=== PATIENT | male | born 1985 | race Caucasian/White ===

== ENCOUNTER → 2018-10-17 21:24 | Emergency (ER) | payer BC, OTHER ==
[~2018-10-17 21:24] MED LIST: NS 0.9% 1000 ML** 1,000 ML IV ONE
--- NOTE | 2018-10-17 21:36 | ED ---
Syncope/Near Syncope - HPI Summary HPI Summary: This patient is a 32 year old male brought in by EMS presenting to [facility] with a chief complaint of syncope 20 minutes ago. The patient lost consciousness for 7 minutes, per EMS. The patient states he experienced dizziness then passed out. 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 He states he is currently experiencing chest pain. The patient denies urination when he experienced the episode. - History Of Current Complaint Time Seen by Provider: 10/17/18 21:29 Hx Obtained From: Patient, EMS Onset/Duration: Lasting Minutes - Allergies/Home Medications Allergies/Adverse Reactions: Allergies Allergy/AdvReac Type Severity Reaction Status Date / Time No Known Allergies Allergy Verified 10/17/18 21:47 Home Medications: Home Medications NK [No Home Medications Reported] 10/17/18 [History Confirmed 10/17/18] PMH/Surg Hx/FS Hx/Imm Hx Endocrine/Hematology History: Denies: Hx Diabetes Cardiovascular History: Denies: Hx Hypertension, Hx Myocardial Infarction Infectious Disease History: No Infectious Disease History: Denies: Traveled Outside the [place] in Last 30 Days - Family History Known Family History: Positive: Cardiac Disease - Social History Alcohol Use: None Substance Use Type: Reports: Marijuana Hx Tobacco Use: No Smoking Status (MU): Never Smoked Tobacco Review of Systems Positive: Chest Pain Positive: incontinence Neurological: Other - Dizziness Positive: Syncope All Other Systems Reviewed And Are Negative: Yes Physical Exam - Summary Physical Exam Summary: VITAL SIGNS: Reviewed. GENERAL: Patient is a well-developed and nourished MALE who is lying comfortable in the stretcher. Patient is not in any acute respiratory distress. HEAD AND FACE: No signs of trauma. No ecchymosis, hematomas or skull depressions. No sinus tenderness. EYES: PERRLA, EOMI x 2, No injected conjunctiva, no nystagmus. EARS: Hearing grossly intact. Ear canals and tympanic membranes are within normal limits. MOUTH: Oropharynx within normal limits. NECK: Supple, trachea is midline, no adenopathy, no JVD, no carotid bruit, no c- spine tenderness, neck with full ROM CHEST: Symmetric, no tenderness at palpation LUNGS: Clear to auscultation bilaterally. No wheezing or crackles. CVS: Regular rate and rhythm, S1 and S2 present, no murmurs or gallops appreciated. ABDOMEN: Soft, non-tender. No signs of distention. No rebound no guarding, and no masses palpated. Bowel sounds are normal. EXTREMITIES: FROM in all major joints, no edema, no cyanosis or clubbing. NEURO: Alert and oriented x 3. No acute neurological deficits. Speech is normal and follows commands. SKIN: Dry and warm Triage Information Reviewed: Yes Vital Signs On Initial Exam: Initial Vitals Temp Pulse Resp BP Pulse Ox 99.4 F 83 16 122/77 98 10/17/18 21:25 10/17/18 21:25 10/17/18 21:25 10/17/18 21:25 10/17/18 21:25 Vital Signs Reviewed: Yes Diagnostics - Vital Signs Vital Signs Temp Pulse Resp BP Pulse Ox 10/17/18 21:25 99.4 F 83 16 122/77 98 - Laboratory Result Diagrams: 10/17/18 21:46 10/17/18 21:46 Lab Statement: Any lab studies that have been ordered have been reviewed, and results considered in the medical decision making process. - EKG 2126 Cardiac Rate: NL EKG Rhythm: Sinus Rhythm - [address] Segment: Normal Ectopy: None Summary of EKG Findings: Normal interval, normal axis, no ischemic changes. Course/Dx Course Of Treatment: This patient is a 32 year old male brought in by EMS presenting to [facility] with a chief complaint of syncope 20 minutes ago. EKG was unremarkable for cardiovascular problems. The patient will be discharged and instructed to restrain from extertional activity until cleared by a Acrobatic Dancer. This plan was discussed with the patient and he was agreeable with this plan. - Diagnoses Provider Diagnoses: Heat syncope Discharge - Sign-Out/Discharge Documenting (check all that apply): Patient Departure - Discharge Patient Received Moderate/Deep Sedation with Procedure: No - Discharge Plan Condition: Stable Disposition: HOME Patient Education Materials: Heat Exhaustion (ED), Syncope (ED) Referrals: [facility] [Provider Group] - 1 Day Additional Instructions: Follow up with Cardiology on Thursday. Refrain from physical activity until cleared by the Acrobatic Dancer. Return to ED with any new or worsening symptoms. - Attestation Statements Document Initiated by Scribe: Yes Documenting Scribe: Catracho El Provider For Whom Scribe is Documenting (Include Credential): MD Lida Hoe Attestation: Catracho Cisneros, scribed for Marcella Macias MD on 10/17/18 at 2301. Status of Scribe Document: Ready
[2018-10-17 21:54] LABS: ABS Basophils 0.1 10^3/ul (0-0.2); ABS Eosinophils 0.1 10^3/ul (0-0.6); ABS Lymphocytes 2.3 10^3/ul (1.0-4.8); ABS Monocytes 0.8 10^3/ul (0-0.8); ABS Neutrophils 8.3 10^3/ul (1.5-7.7); Eosinophil % 0.5 %; Hematocrit 45 % (42-52); Hemoglobin 14.8 g/dL (14.0-18.0); Lymphocyte % 20.1 %; Mean Corpuscular HGB Conc 33 g/dL (31-36); Mean Corpuscular Hemoglobin 27 pg (27-31); Mean Corpuscular Volume 81 fL (80-94); Mean Platelet Volume 9.5 fL (7.4-10.4); Nucleated Red Blood Cells % 0.1; Platelet Count 229 10^3/uL (150-450); Red Blood Count 5.51 10^6 /uL (4.18-5.48); Red Cell Distribution Width 14 % (10.5-15); White Blood Count 11.6 10^3/uL (3.5-10.8)
[2018-10-17 22:12] LABS: Albumin 5.5 g/dL (3.2-5.2); Albumin/Globulin Ratio 2.2 (1-3); BUN/Creatinine Ratio 12.4 (8-20); Calcium 11.3 mg/dL (8.6-10.3); EGFR Non-African American 59.5 (>60); Globulin 2.5 g/dL (2-4); Magnesium 2.1 mg/dL (1.9-2.7); Potassium 3.7 mmol/L (3.5-5.0)
[2018-10-17 22:14] LABS: Troponin I 0.03 ng/mL (<0.04)
[2018-10-17 22:58] LABS: TSH (Thyroid Stimulating Horm) 2.5 mcIU/mL (0.34-5.60)
[2018-10-17 23:13] VITALS: BP 116/70
[2018-10-17 23:17] LABS: Urine Appearance Cloudy; Urine Bacteria Absent (Absent); Urine Bilirubin Negative (Negative); Urine Blood 1+ (Negative); Urine Color Amber; Urine Glucose Negative (Negative); Urine Ketones 1+ (Negative); Urine Nitrite Negative (Negative); Urine Protein 1+(30 mg/dL) (Negative); Urine Red Blood Cell 3+(>10/hpf) (Absent); Urine Specific Gravity 1.027 (1.010-1.030); Urine Squamous Epithelial Cell Present (Absent); Urine Urobilinogen Negative (Negative); Urine White Blood Cell Trace(0-5/hpf) (Absent)
== END | disposition home or self-care (01) ==
LOC: ED 21:24
DX: R55 Syncope and collapse (principal)
CPT/HCPCS: 36415; 80053; 81003; 81015; 82550; 83735; 84443; 84484; 85025; 87086; 93005; 96360; 99285

== ENCOUNTER 2019-03-28 15:58 | Emergency (ER) | payer OTHER ==
[2019-03-28 16:38] VITALS: BP 120/70
--- NOTE | 2019-03-28 17:16 | UC ---
UC General HPI - HPI Summary HPI Summary: 33-year-old male comes in wishing to be tested for sexual transmitted infections. He is asymptomatic. He has sex with women. Denies any testicular pain or scrotal pain. No fevers or chills feels well otherwise. - History of Current Complaint Chief Complaint: UCSTDScreening Stated Complaint: WANTS TESTING Time Seen by Provider: 03/28/19 16:54 Pain Intensity: 0 - Allergy/Home Medications Allergies/Adverse Reactions: Allergies Allergy/AdvReac Type Severity Reaction Status Date / Time No Known Allergies Allergy Verified 03/28/19 16:36 PMH/Surg Hx/FS Hx/Imm Hx Previously Healthy: Yes - Surgical History Surgical History: None - Family History Known Family History: Positive: Cardiac Disease - Social History Alcohol Use: None Substance Use Type: Marijuana Substance Use Comment - Amount & Last Used: hx of Smoking Status (MU): Never Smoked Tobacco Review of Systems All Other Systems Reviewed And Are Negative: Yes Constitutional: Positive: Negative Skin: Positive: Negative Eyes: Positive: Negative ENT: Positive: Negative Respiratory: Positive: Negative Cardiovascular: Positive: Negative Gastrointestinal: Positive: Negative Genitourinary: Positive: Negative Motor: Positive: Negative Neurovascular: Positive: Negative Musculoskeletal: Positive: Negative Neurological: Positive: Negative Psychological: Positive: Negative Is Patient Immunocompromised?: No Physical Exam Triage Information Reviewed: Yes Appearance: Well-Appearing, No Pain Distress, Well-Nourished Vital Signs: Initial Vital Signs Temp 99 F 03/28/19 16:33 Pulse 62 03/28/19 16:33 Resp 18 03/28/19 16:33 BP 120/70 03/28/19 16:33 Pulse Ox 100 03/28/19 16:33 Vital Signs Reviewed: Yes Eye Exam: Normal Eyes: Positive: Conjunctiva Clear ENT: Positive: Pharynx normal Neck: Positive: Supple Respiratory: Positive: Lungs clear, Normal breath sounds, No respiratory distress Cardiovascular: Positive: RRR Abdomen Description: Positive: Nontender, Soft. Negative: CVA Tenderness (R), CVA Tenderness (L) Bowel Sounds: Positive: Present Male Genital Exam: Positive: Other - Patient reports being asymptomatic and declines genital exam at this time. Musculoskeletal: Positive: Strength Intact Neurological: Positive: Alert Psychological: Positive: Age Appropriate Behavior Skin Exam: Normal Course/Dx - Course Course Of Treatment: Asymptomatic screening and a 33-year-old male who has sex with women. Urine gonorrhea chlamydia were collected. Blood HIV hepatitis screen RPR also collected. - Diagnoses Provider Diagnosis: Routine screening for STI (sexually transmitted infection) Discharge ED - Sign-Out/Discharge Documenting (check all that apply): Patient Departure All imaging exams completed and their final reports reviewed: No Studies - Discharge Plan Condition: Stable Disposition: HOME Patient Education Materials: Sexually Transmitted Diseases (ED) Referrals: Catracho Lao MD [Primary Care Provider] - Additional Instructions: FOLLOW UP WITH YOUR DOCTOR IF NOT COMPLETELY IMPROVED. GET RECHECKED SOONER IF YOUR CONDITION WORSENS OR ANY QUESTIONS OR CONCERNS. - Billing Disposition and Condition Condition: STABLE Disposition: Home
[2019-03-29 12:51] LABS: Hepatitis B Surface Antigen Nonreactive (Nonreactive)
[2019-03-29 13:09] LABS: Hepatitis C Antibody Negative (Negative)
--- NOTE | 2019-03-29 15:46 | UC ---
- Progress Note Progress Note: Patient syphilis screen and HIV test are pending. Hepatitis C hepatitis a hepatitis B surface antibody and hepatitis B surface antigen are nonreactive. Course/Dx - Diagnoses Provider Diagnoses: Routine screening for STI (sexually transmitted infection) Discharge ED - Sign-Out/Discharge Documenting (check all that apply): Post-Discharge Follow Up All imaging exams completed and their final reports reviewed: No Studies - Discharge Plan Condition: Stable Disposition: HOME Patient Education Materials: Sexually Transmitted Diseases (ED) Referrals: Catarcho Lao MD [Primary Care Provider] - Additional Instructions: FOLLOW UP WITH YOUR DOCTOR IF NOT COMPLETELY IMPROVED. GET RECHECKED SOONER IF YOUR CONDITION WORSENS OR ANY QUESTIONS OR CONCERNS. - Billing Disposition and Condition Condition: STABLE Disposition: Home
[2019-03-29 16:37] LABS: HIV 4th Generation Nonreactive (Nonreactive)
[2019-03-30 12:30] LABS: Chlamydia trachomatis NAA Negative (Negative); Neisseria gonorrhoeae (GC) NAA Negative (Negative)
--- NOTE | 2019-03-30 22:35 | UC ---
- Progress Note Progress Note: Please advise that Gonorrhea and Chlamydial screens are negative. Course/Dx - Diagnoses Provider Diagnoses: Routine screening for STI (sexually transmitted infection) Discharge ED - Sign-Out/Discharge Documenting (check all that apply): Post-Discharge Follow Up All imaging exams completed and their final reports reviewed: No Studies - Discharge Plan Condition: Stable Disposition: HOME Patient Education Materials: Sexually Transmitted Diseases (ED) Referrals: Catracho Lao MD [Primary Care Provider] - Additional Instructions: FOLLOW UP WITH YOUR DOCTOR IF NOT COMPLETELY IMPROVED. GET RECHECKED SOONER IF YOUR CONDITION WORSENS OR ANY QUESTIONS OR CONCERNS. - Billing Disposition and Condition Condition: STABLE Disposition: Home
== END 2019-03-28 17:27 | disposition home or self-care (01) ==
LOC: UCEAST 15:58
DX: Z11.3 Encounter for screening for infections with a predominantly sexual mode of transmission (principal)
CPT/HCPCS: 36415; 80074; 86780; 87389; 87491; 87591; 99211; G0463

== ENCOUNTER 2019-04-13 07:16 | Emergency (ER) | payer OTHER ==
[2019-04-13 07:32] VITALS: BP 115/72
--- NOTE | 2019-04-13 07:56 | UC ---
Skin Complaint HPI - HPI Summary HPI Summary: 33-year-old male comes in with chief complaint of a rash. 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 Patient started getting a rash at that time. it's on his hands arms face neck. Initially there was small areas and he would use topical creams and the rash would go away. More recently it's been spreading on the same areas and is remaining. The rash does seem to not change or get better when he is not at work. Anytime he gets to work the rash starts to become more irritated and starts to spread. No fevers no chills no difficulty breathing or swallowing. - History of Current Complaint Chief Complaint: UCRash Time Seen by Provider: 04/13/19 07:44 Stated Complaint: REACTION TO COOLANT AT WORK Pain Intensity: 1 - Allergy/Home Medications Allergies/Adverse Reactions: Allergies Allergy/AdvReac Type Severity Reaction Status Date / Time No Known Allergies Allergy Verified 03/28/19 16:36 PMH/Surg Hx/FS Hx/Imm Hx Previously Healthy: Yes - Surgical History Surgical History: None - Family History Known Family History: Positive: Cardiac Disease - Social History Alcohol Use: None Substance Use Type: None Substance Use Comment - Amount & Last Used: hx of pot Smoking Status (MU): Never Smoked Tobacco Review of Systems All Other Systems Reviewed And Are Negative: Yes Constitutional: Positive: Negative Skin: Positive: Other - SEE HPI Eyes: Positive: Negative ENT: Positive: Negative Respiratory: Positive: Negative Cardiovascular: Positive: Negative Gastrointestinal: Positive: Negative Motor: Positive: Negative Neurovascular: Positive: Negative Musculoskeletal: Positive: Negative Neurological: Positive: Negative Psychological: Positive: Negative Is Patient Immunocompromised?: No Physical Exam Triage Information Reviewed: Yes Appearance: Well-Appearing, No Pain Distress, Well-Nourished Vital Signs: Initial Vital Signs Temp 97.8 F 04/13/19 07:27 Pulse 71 04/13/19 07:27 Resp 18 04/13/19 07:27 BP 115/72 04/13/19 07:27 Pulse Ox 99 04/13/19 07:27 Vital Signs Reviewed: Yes Eye Exam: Normal Eyes: Positive: Conjunctiva Clear ENT: Positive: Pharynx normal Neck: Positive: Supple Respiratory: Positive: Lungs clear, Normal breath sounds, No respiratory distress Cardiovascular: Positive: RRR Musculoskeletal: Positive: Strength Intact, ROM Intact Neurological: Positive: Alert, Muscle Tone Normal Psychological: Positive: Age Appropriate Behavior Skin: Positive: Other - On both hands and forearms neck and face there is a diffuse patchy erythematous slightly raised rough rash. On some areas it is cracked. Course/Dx - Course Course Of Treatment: Rash is consistent with a contact dermatitis. We'll treat with a Medrol Dosepak and have him follow-up with occupational medicine. Reaction may be caused by the cleansing solution but also could be caused by reaction to metal shavings involved with the work. No difficulty breathing or swallowing at this time. I did do a refill for Medrol Dosepak to be used as needed. I also wrote for him to be out of work until cleared by medical provider. - Diagnoses Provider Diagnosis: Contact dermatitis Discharge ED - Sign-Out/Discharge Documenting (check all that apply): Patient Departure All imaging exams completed and their final reports reviewed: No Studies - Discharge Plan Condition: Stable Disposition: HOME Prescriptions: methylPREDNISolone [Medrol Dosepak 4 MG*] 0 mg PO .SEE ROGER INSTRUCTION #1 roger Patient Education Materials: Contact Dermatitis (ED) Forms: *Work Release Referrals: Catracho Lao MD [Primary Care Provider] - Kirill Millard MD [Medical Doctor] - Additional Instructions: FOLLOW UP WITH DR MILLARD, OCCUPATIONAL MEDICINE. GET REEVALUATED SOONER IF NOT IMPROVED OR WORSE; DIFFICULTY BREATHING OR SWALLOWING, YOU FEEL ILL, SPREAD OF THE RASH OR ANY QUESTIONS OR CONCERNS. - Billing Disposition and Condition Condition: STABLE Disposition: Home
== END 2019-04-13 08:02 | disposition home or self-care (01) ==
LOC: UCEAST 07:16
DX: L25.9 Unspecified contact dermatitis, unspecified cause (principal)
CPT/HCPCS: 99212; G0463